=== PATIENT | female | born 1965 | race American Indian/Alaskan Native ===

== ENCOUNTER 2017-02-27 06:28 | Emergency (ER) | payer OTHER ==
[2017-02-27] MEDS ORDERED: BENADRYL PO ONE (08:20)
[2017-02-27] MEDS ORDERED: VALIUM PO ONE (08:20)
[2017-02-27] MEDS ORDERED: MOTRIN PO ONE (08:20)
[2017-02-27] MEDS ORDERED: TYLENOL PO ONE (08:23)
--- NOTE | 2017-02-27 08:49 | Cat Scan Report ---
CT HEAD WITHOUT CONTRAST INDICATION: Headache. COMPARISON: None similar. FINDINGS: Noncontrast head CT demonstrates normal ventricles and sulci without acute or recent infarct, hemorrhage, mass effect or midline shift. Approximately 1.7 cm high left frontal old infarct, axial image 34, series 2. No abnormal extra-axial fluid collections. Posterior fossa structures and basilar cisterns appear within normal limits. Symmetric eye globes. Imaged left maxillary sinus near completely filled by a 3.5 x 2.4 cm mucous retention cyst. Clear remainder imaged paranasal sinuses and mastoid air cells. Slight leftward nasal septal bowing. Intact calvarium. Normal overlying scalp soft tissues. Few radiopaque dental material incidentally noted. CONCLUSION: No acute intracranial CT abnormality with extensive left maxillary sinus disease and few other incidental findings, as described. Please correlate. Thank you for the opportunity to participate in this patient's care.
--- NOTE | 2017-02-27 11:08 | Emergency Department Report ---
ED Headache HPI - General Chief Complaint: Headache Stated Complaint: RT FACIAL PAIN Time Seen by Provider: 02/27/17 08:13 - History of Present Illness Initial Comments: 52-year-old -[place] female with a past medical history of diabetes comes in today for complaint of headache on the right side since Thursday. Patient denies any blurred vision no change of vision no dizziness no nausea no vomiting no trauma. She does report she has a history of allergies. She is currently taking metformin for diabetes twice a day. She does report she took ibuprofen 800 mg which had some relief but did not take the headache away totally. Patient does report that the headache radiates down to under her tongue. She denies his being her worst headache. She denies any chest pain she denies any shortness of breath she denies any jaw pain. Quality: moderate Head Injury Location: parietal Recent Head Trauma: no recent headache/trauma Allergies/Adverse Reactions: Allergies No Known Allergies Allergy (Verified 12/28/15 09:30) Home Medications: Ambulatory Orders Tamsulosin [Flomax] 0.4 mg PO QDAY #15 cap 12/28/15 Fluticasone [Flonase] 1 spray NS BID #1 bottle 02/27/17 Ibuprofen [Motrin 800 MG tab] 800 mg PO Q8HR PRN #30 tablet 02/27/17 ED Review of Systems ROS: Stated complaint: RT FACIAL PAIN Other details as noted in HPI ED Past Medical Hx - Past Medical History Previous Medical History?: Yes Hx Diabetes: Yes (borderline) - Surgical History Past Surgical History?: Yes Additional Surgical History: partial hysterectomy - Social History Smoking Status: Never Smoker Substance Use Type: None - Medications Home Medications: Home Medications Medication Instructions Recorded Confirmed Last Taken Type Tamsulosin [Flomax] 0.4 mg PO QDAY #15 cap 12/28/15 Unknown Rx Fluticasone [Flonase] 1 spray NS BID #1 bottle 02/27/17 Unknown Rx Ibuprofen [Motrin 800 MG tab] 800 mg PO Q8HR PRN #30 tablet 02/27/17 Unknown Rx ED Physical Exam - General Limitations: No Limitations General appearance: alert - Head Head exam: Present: atraumatic - Eye Eye exam: Present: normal appearance, EOMI Pupils: Present: normal accommodation - ENT ENT exam: Present: normal exam, mucous membranes moist - Neck Neck exam: Present: normal inspection - Respiratory Respiratory exam: Present: normal lung sounds bilaterally. Absent: respiratory distress - Cardiovascular Cardiovascular Exam: Present: regular rate, normal rhythm, normal heart sounds - Neurological Exam Neurological exam: Present: alert, oriented X3 - Psychiatric Psychiatric exam: Present: normal affect - Skin Skin exam: Present: warm, dry, intact ED Course Vital Signs 02/27/17 07:20 Temperature 98.2 F Pulse Rate 72 Respiratory 18 Rate Blood Pressure 153/96 O2 Sat by Pulse 99 Oximetry ED Medical Decision Making - Radiology Data Radiology results: report reviewed, image reviewed CT results conclusion no acute intracranial CT abnormalities with extensive left maxillary sinus disease and a few other incidental findings as described above. Consist of noncontrast CT demonstrates normal ventricular and socks is without acute or recent infarct, hemorrhagic mass effect on midline shift approximately 1.7 cm high left frontal O infarct, axial image 34 series today. No abnormal extra-axial axillary fluid collections. Posterior fossa structure and basilar cistern. Within normal limits. Symmetric I globes image left maxillary sinus nearly completely fill bite at 3.5 x 2.4 cm mucus retention cyst. Clear remainder images parasite all sinuses and mastoid air cells. Slightly leftward nasal septal bowing. Intact cavernoma normal overlying scalp soft tissue few radiopaque dental material is initially noted - Medical Decision Making Evaluated by this provider Nura. Discussed patient that we would discharge her on Flonase I's a day and ibuprofen. Recommend for her to follow up with ear nose and throat provider. This case was discussed with Dr. Bennett. Critical care attestation.: If time is entered above; I have spent that time in minutes in the direct care of this critically ill patient, excluding procedure time. ED Disposition Clinical Impression: Mucous retention cyst of maxillary sinus Headache Qualifiers: Headache type: unspecified Headache chronicity pattern: acute headache Intractability: not intractable Qualified Code(s): R51 - Headache Disposition: DISCHARGED TO HOME OR SELFCARE Is pt being admited?: No Does the pt Need Aspirin: No Condition: Stable Instructions: Analgesic/Decongestant (By mouth) Additional Instructions: Pleas take ibuprofen every 8 hours for headache as well as please use the Flonase nasal spray every 12 hours. I will likely to follow up with Dr. Kirsty Biggs ceramic research engineer. Prescriptions: Fluticasone [Flonase] 1 spray NS BID #1 bottle Ibuprofen [Motrin 800 MG tab] 800 mg PO Q8HR PRN #30 tablet PRN Reason: Pain Referrals: PRIMARY CARE, [Primary Care Provider] - 3-5 Days BASHIR REDDY MD [Staff Physician] - 3-5 Days Forms: Work/School Release Form(ED)
[2017-02-27 11:43] VITALS: BP 148/90
== END 2017-02-27 11:42 | disposition home or self-care (01) ==
LOC: ED 06:28
DX: M27.40 Unspecified cyst of jaw (principal); R51 Headache; Z90.711 Acquired absence of uterus with remaining cervical stump
CPT/HCPCS: 70450

== ENCOUNTER 2017-06-23 15:29 | Emergency (ER) | payer OTHER ==
[2017-06-23 16:12] VITALS: BP 162/93
--- NOTE | 2017-06-23 22:35 | XRay Report ---
FINAL REPORT PROCEDURE: XR SHOULDER 2+V RT TECHNIQUE: Right shoulder radiographs including AP views in internal and external rotation and abduction. CPT 36508 HISTORY: shoulder pain/RT COMPARISON: No prior studies are available for comparison. FINDINGS: Fracture (s) and/or Dislocation(s): None . Joint space(s): Normal . Soft tissues: Normal . Bone mineralization: Normal . Foreign bodies: None . IMPRESSION: Normal Examination
[2017-06-23] MEDS ORDERED: ZOFRAN IM ONE (23:50)
[2017-06-23] MEDS ORDERED: MORPHINE IM ONE (23:50)
[2017-06-23] MEDS ORDERED: TORADOL IM ONE (23:50)
--- NOTE | 2017-06-23 23:55 | Emergency Department Report ---
HPI - General Chief Complaint: Shoulder Injury Time Seen by Provider: 06/23/17 23:38 - HPI HPI: Room 29 The patient is a 52-year-old female presenting with a chief complaint of right shoulder pain. The patient states she awakened this morning with pain in the right shoulder. The patient states she took a muscle relaxer (name unknown) but it has not helped. Patient denies any preceding trauma. The patient states for the past 2 years she has had intermittent episodes of muscle spasms in the neck and shoulder but has never been this severe. Patient states she has never seen an orthopedic surgeon. The patient currently gives her pain a score of 10/10 Location: Right trapezius Duration: Constant since this morning Quality: Spasm Severity: 10/10 Modifying factors: [see above] Context: [see above] Mode of transportation: [not driving] ED Past Medical Hx - Past Medical History Previous Medical History?: Yes Hx Hypertension: Yes Hx Diabetes: Yes Additional medical history: headaches - Surgical History Past Surgical History?: Yes Additional Surgical History: partial hysterectomy - Family History Family history: no significant - Social History Smoking Status: Never Smoker Substance Use Type: None - Medications Home Medications: Home Medications Medication Instructions Recorded Confirmed Last Taken Type Tamsulosin [Flomax] 0.4 mg PO QDAY #15 cap 12/28/15 02/27/17 02/26/17 Rx 1 tab Fluticasone [Flonase] 1 spray NS BID #1 bottle 02/27/17 Unknown Rx Ibuprofen [Motrin 800 MG tab] 800 mg PO Q8HR PRN #30 tablet 02/27/17 Unknown Rx Cyclobenzaprine [Flexeril] 10 mg PO TID PRN #10 tablet 06/23/17 Unknown Rx HYDROcodone/APAP 5-325 [[place] 1 - 2 each PO Q6HR PRN #10 tablet 06/23/17 Unknown Rx 5/325] Ibuprofen [Motrin 800 MG tab] 800 mg PO Q8HR PRN #20 tablet 06/23/17 Unknown Rx ED Review of Systems ROS: Stated complaint: SHOULDER PAIN Other details as noted in HPI Comment: All other systems reviewed and negative Constitutional: denies: chills, fever Eyes: denies: eye pain, eye discharge, vision change ENT: denies: ear pain, throat pain Respiratory: denies: cough, shortness of breath, wheezing Cardiovascular: denies: chest pain, palpitations Endocrine: no symptoms reported Gastrointestinal: denies: abdominal pain, nausea, diarrhea Genitourinary: denies: urgency, dysuria, discharge Musculoskeletal: myalgia Skin: denies: rash, lesions Neurological: denies: headache, weakness, paresthesias Psychiatric: denies: anxiety, depression Hematological/Lymphatic: denies: easy bleeding, easy bruising Physical Exam - Physical Exam Vital Signs: Vital Signs 06/23/17 16:07 Temperature 98.6 F Pulse Rate 78 Respiratory 20 Rate Blood Pressure 162/93 O2 Sat by Pulse 100 Oximetry Physical Exam: GENERAL: The patient is well-developed well-nourished female lying on stretcher not appearing to be in acute distress. [] HEENT: Normocephalic. Atraumatic. Extraocular motions are intact. Patient has moist mucous membranes. NECK: Supple. Trachea midline. CHEST/LUNGS:There is no respiratory distress noted. HEART/CARDIOVASCULAR: Regular. There is no tachycardia. 2+ right radial pulse ABDOMEN: There is no abdominal distention. SKIN: There is no rash. There is no edema. There is no diaphoresis. NEURO: The patient is awake, alert, and oriented. The patient is cooperative. The patient has normal speech. Normal front end engineer right hand. MUSCULOSKELETAL: There is tenderness to palpation of the right side of the trapezius muscle. There is no limitation range of motion of the right shoulder. There is no evidence of acute injury. ED Course Vital Signs 06/23/17 16:07 Temperature 98.6 F Pulse Rate 78 Respiratory 20 Rate Blood Pressure 162/93 O2 Sat by Pulse 100 Oximetry ED Medical Decision Making - Radiology Data Radiology results: image reviewed (right shoulder x-ray) interpreted by me: Right shoulder x-ray-no acute fracture, no dislocation - Differential Diagnosis rotator cuff injury, trapezius spasm, cervical radiculopathy Critical care attestation.: If time is entered above; I have spent that time in minutes in the direct care of this critically ill patient, excluding procedure time. ED Disposition Clinical Impression: Right shoulder pain Disposition: DC-01 TO HOME OR SELFCARE Is pt being admited?: No Does the pt Need Aspirin: No Condition: Stable Instructions: Shoulder Sprain (ED) Additional Instructions: Return to the emergency department immediately should you develop worsening symptoms, fever, inability to tolerate food or liquid or any other concerns. Prescriptions: Cyclobenzaprine [Flexeril] 10 mg PO TID PRN #10 tablet PRN Reason: Muscle Spasm HYDROcodone/APAP 5-325 [[place] 5/325] 1 - 2 each PO Q6HR PRN #10 tablet PRN Reason: Pain Ibuprofen [Motrin 800 MG tab] 800 mg PO Q8HR PRN #20 tablet PRN Reason: Pain Referrals: PRIMARY CAREMD [Primary Care Provider] - 3-5 Days SHAHAB REY MD [Staff Physician] - 3-5 Days (Dr. Rey is an orthopedic surgeon. Please follow up with him for further evaluation) Time of Disposition: 23:57
== END 2017-06-24 00:24 | disposition home or self-care (01) ==
LOC: ED 15:29
DX: M25.511 Pain in right shoulder (principal); I10 Essential (primary) hypertension; E11.9 Type 2 diabetes mellitus without complications; X58.XXXA Exposure to other specified factors, initial encounter; Y93.89 Activity, other specified; Y92.89 Other specified places as the place of occurrence of the external cause; Y99.8 Other external cause status
CPT/HCPCS: 73030; 96372; 99283; J1885; J2270; J2405

== ENCOUNTER 2018-03-02 07:13 | Emergency (ER) | payer OTHER ==
[2018-03-02 07:37] VITALS: BP 161/78
--- NOTE | 2018-03-02 10:04 | Emergency Department Report ---
ED Neck Pain [facility] Chief Complaint: Neck Pain/Injury Stated Complaint: NECK PAIN Time Seen by Provider: 03/02/18 10:01 ED Review of Systems ROS: Stated complaint: NECK PAIN Other details as noted in HPI ED Past Medical Hx - Past Medical History Previous Medical History?: Yes Hx Hypertension: Yes Hx Diabetes: Yes Additional medical history: headaches - Surgical History Past Surgical History?: Yes Additional Surgical History: partial hysterectomy, CYST REMOVED FROM NOSE - Social History Smoking Status: Never Smoker Substance Use Type: Alcohol, Prescribed - Medications Home Medications: Home Medications Medication Instructions Recorded Confirmed Last Taken Type Tamsulosin [Flomax] 0.4 mg PO QDAY #15 cap 12/28/15 02/27/17 02/26/17 Rx 1 tab Fluticasone [Flonase] 1 spray NS BID #1 bottle 02/27/17 Unknown Rx Ibuprofen [Motrin 800 MG tab] 800 mg PO Q8HR PRN #30 tablet 02/27/17 Unknown Rx Cyclobenzaprine [Flexeril] 10 mg PO TID PRN #10 tablet 06/23/17 Unknown Rx HYDROcodone/APAP 5-325 [[place] 1 - 2 each PO Q6HR PRN #10 tablet 06/23/17 Unknown Rx 5/325] Ibuprofen [Motrin 800 MG tab] 800 mg PO Q8HR PRN #20 tablet 06/23/17 Unknown Rx Neck Pain Exam - Exam General: Vital signs noted. No distress. Alert and acting appropriately. ED Course Vital Signs 03/02/18 07:34 Temperature 98.9 F Pulse Rate 80 Respiratory 20 Rate Blood Pressure 161/78 O2 Sat by Pulse 100 Oximetry Critical care attestation.: If time is entered above; I have spent that time in minutes in the direct care of this critically ill patient, excluding procedure time. ED Disposition Condition: Stable Referrals: PRIMARY CARE, [Primary Care Provider] - 3-5 Days
--- NOTE | 2018-03-02 10:19 | Emergency Department Report ---
HPI - General Chief Complaint: Neck Pain/Injury Time Seen by Provider: 03/02/18 10:01 - HPI HPI: Patient complain and neck pain for 4 days. She is pointing to the left side of her head and also left side of neck. She said pain is 8 out of 10 and he feels tight. Denies any injury. Patient has a history of headache diabetes and hypertension. She has a history of partial hysterectomy. She says she took [id number] pain medication but it didn't work. Patient is also lasted for work through ports. Denies any chest pain or shortness of breath. Denies any cough or reports some nasal congestion and drainage. Denies any fever or chills. Denies any nausea vomiting or diarrhea. Denies any abdominal or back pain. Nothing makes pain better and nothing makes it worse. Denies sensitivity to light. Denies any visual problems and denies dizziness. ED Past Medical Hx - Past Medical History Previous Medical History?: Yes Hx Hypertension: Yes Hx Diabetes: Yes Additional medical history: headaches - Surgical History Past Surgical History?: Yes Additional Surgical History: partial hysterectomy, CYST REMOVED FROM NOSE - Family History Family history: hypertension - Social History Smoking Status: Never Smoker Substance Use Type: Alcohol, Prescribed - Medications Home Medications: Home Medications Medication Instructions Recorded Confirmed Last Taken Type Tamsulosin [Flomax] 0.4 mg PO QDAY #15 cap 12/28/15 02/27/17 02/26/17 Rx 1 tab Ibuprofen [Motrin 800 MG tab] 800 mg PO Q8HR PRN #30 tablet 02/27/17 Unknown Rx Cyclobenzaprine [Flexeril] 10 mg PO TID PRN #10 tablet 06/23/17 Unknown Rx HYDROcodone/APAP 5-325 [[place] 1 - 2 each PO Q6HR PRN #10 tablet 06/23/17 Unknown Rx 5/325] Ibuprofen [Motrin 800 MG tab] 800 mg PO Q8HR PRN #20 tablet 06/23/17 Unknown Rx Amoxicillin/K Clav Tab [Augmentin 1 tab PO Q12HR 10 Days #20 tab 03/02/18 Unknown Rx 875 mg] Cetirizine HCl [ZyrTEC] 10 mg PO QAM 14 Days #14 capsule 03/02/18 Unknown Rx Fluticasone [Flonase] 1 spray NS BID 14 Days #1 bottle 03/02/18 Unknown Rx traMADol [Ultram] 50 mg PO Q6HR PRN 5 Days #5 tablet 03/02/18 Unknown Rx ED Review of Systems ROS: Stated complaint: NECK PAIN Other details as noted in HPI Comment: All other systems reviewed and negative Constitutional: no symptoms reported Eyes: denies: eye pain, vision change ENT: congestion. denies: ear pain, throat pain Respiratory: no symptoms reported Cardiovascular: denies: chest pain, palpitations, dyspnea on exertion, orthopnea , edema, syncope, paroxysmal nocturnal dyspnea Gastrointestinal: denies: abdominal pain, nausea, vomiting, diarrhea, constipation, hematemesis, melena, hematochezia Genitourinary: denies: urgency, dysuria, frequency, hematuria, discharge Musculoskeletal: arthralgia, myalgia. denies: back pain, joint swelling Skin: denies: rash Neurological: headache. denies: weakness, numbness, paresthesias, confusion, abnormal gait, vertigo Physical Exam - Physical Exam Vital Signs: Vital Signs 03/02/18 07:34 Temperature 98.9 F Pulse Rate 80 Respiratory 20 Rate Blood Pressure 161/78 O2 Sat by Pulse 100 Oximetry General: This is a 53-year-old female well-nourished well-developed in no acute distress. She is nontoxic in appearance Physical Exam: Head: Normocephalic, atraumatic, no abrasion, no bruising and no contusion. Eyes: Biateral pupils equal and reactive to light, bilateral EOM intact.. Bilateral conjunctival and sclera without injection, normal accommodation. No nystagmus Mouth: Mucosa dry, no pharyngeal exudate or erythema. No peritonsillar abscesses. Uvula is midline and oral airways patent. Ears: Bilateral TMs congested without erythema. Bilateral EAC without any redness swelling or drainage. No mastoid bone tenderness Nose: Bilateral nasal mucosa congested with erythema and clear drainage , Maxillary and frontal sinuses non-tender to palpate. Neck: Supple, No Cervical adenopathy, full range of motion and no C-spine tenderness. No swelling or tracheal deviation normal reflexes Cardiovascular: S1, S2. Regular rate and rhythm. No murmur. Capillary refill is less then 3 seconds. Lungs: Clear to auscultate bilaterally. No rhonchi, wheezes or rales. No chest wall tenderness. No chest contusion. No bruising to chest. MSK: Strength 5/5 in all extremities. No joint deformity or crepitus. Normal inspection. Full range of motion to all extremities. No laceration, abrasion or ecchymotic area noted. Abdomen: Non-tender to palpate in all quadrants, no guarding or rebound tenderness, positive bowel sounds in all quadrants. No CVA tenderness. No hernia, bruit or mass. No rigidity or distention. Extremities: No clubbing, cyanosis or edema. +2 pulses. No neurovascular compromise Skin: Clean, dry and intact. No rash or lesions. Neurological: GCS at 15, Pt is alert and oriented 3 speech is clear . Bilateral [place] ordinary strong and equal. Normal gait. Negative Romberg and no pronator drift. Normal Reflexes. No motor or sensory deficit Back: No vertebral tenderness, no paraspinal tenderness. Ambulates without any difficulties. Psych: Normal mood and behavior ED Course Vital Signs 03/02/18 07:34 Temperature 98.9 F Pulse Rate 80 Respiratory 20 Rate Blood Pressure 161/78 O2 Sat by Pulse 100 Oximetry - Reevaluation(s) Reevaluation #1: 03/02/18 13:03 Patient given Tylenol 975 mg by mouth and emergency room which she also pain the lobe. CT scan of the head without any acute findings except for extracranial sinusitis which is chronic and CT scan of the neck was normal. Patient was given then Toradol 60 mg IM and Decadron 10 mg IM. ED Medical Decision Making - Radiology Data Radiology results: report reviewed CT scan of the brain and head with contrast shows patient with chronic focal infarct in the left frontal lobe measures approximately 2.5 cm. The remaining brain parents Amanda demonstrate normal attenuation. Normal hernandez and white matter. Severe left maxillary sinusitis which is chronic. CT scan of the neck reveal patient without any acute abnormalities. - Medical Decision Making ED course: She reports that she has neck pain on the left side of her neck but upon questioning patient says it's her head this radiated down to the left neck. Pain is located to the left side of head this radiated onto left neck. Patient found to have congested and erythema nasal mucosa with clear drainage. She was given Decadron 10 mg IM and Toradol 60 mg IM which relieved her pain. Her neurological exam is normal and she is able to ambulate without any difficulties. Patient is better after Toradol and Decadron. I discussed with her her CT scan of her head and neck which were both negative for any acute findings but CT scan of the head with chronic focal infarct in the left frontal lobe which patient said that she had a stroke in the past. Extracranial chronic sinusitis. Patient and was undescended discharge instruction sugar and plan and discharged home in stable condition with prescription for ultram, Augmentin, Flonase and Zyrtec. Critical care attestation.: If time is entered above; I have spent that time in minutes in the direct care of this critically ill patient, excluding procedure time. ED Disposition Clinical Impression: History of cerebral infarction, Neck pain on left side Acute sinusitis Qualifiers: Sinusitis location: maxillary Recurrence: recurrent Qualified Code(s): J01.01 - Acute recurrent maxillary sinusitis Headache Qualifiers: Headache type: unspecified Headache chronicity pattern: acute headache Intractability: not intractable Qualified Code(s): R51 - Headache Disposition: DC- TO HOME OR SELFCARE Is pt being admited?: No Does the pt Need Aspirin: No Condition: Stable Instructions: Musculoskeletal Pain (ED), Sinusitis (ED), Acute Headache (ED) Additional Instructions: Please increase her fluid intake Flush nostrils with saline nasal spray take antibiotic as prescribed F/U with primary care physician as instructed in 2 days Prescriptions: Amoxicillin/K Clav Tab [Augmentin 875 mg] 1 tab PO Q12HR 10 Days #20 tab Cetirizine HCl [ZyrTEC] 10 mg PO QAM 14 Days #14 capsule Fluticasone [Flonase] 1 spray NS BID 14 Days #1 bottle traMADol [Ultram] 50 mg PO Q6HR PRN 5 Days #5 tablet PRN Reason: Pain Referrals: PRIMARY CARE, [Primary Care Provider] - 03/03/18 follow-up, neurologist in 2 days [Other] - 03/04/18 Forms: Work/School Release Form(ED)
[2018-03-02] MEDS ORDERED: TYLENOL PO ONE (10:23)
--- NOTE | 2018-03-02 11:32 | Cat Scan Report ---
CT HEAD WITHOUT CONTRAST: HISTORY: Headache. TECHNIQUE: Sequential 2.5mm CT images. COMPARISON: 02/27/17. FINDINGS: Cerebral Parenchyma: Chronic focal infarct in the left frontal lobe measures approximately 2.5 cm. The remaining brain parenchyma demonstrates normal attenuation. Normal hernandez-white interface. Cerebellum: Within normal limits. Brainstem: Within normal limits. Ventricles: Normal. Sella: Normal. Extra-axial spaces: Normal. Basal Cisterns: Normal. Intracranial Hemorrhage: None. Midline Shift: None. Calvarium: Normal. Sinuses: The visualized superior left maxillary sinus is opacified. The remaining sinuses are adequately aerated. Mastoid Air Cells: Normal. Visualized Orbits: Normal. IMPRESSION: No acute intracranial process. Chronic left frontal infarct. Chronic left maxillary sinus disease. No significant change since 02/27/17.
--- NOTE | 2018-03-02 11:50 | Cat Scan Report ---
CT SCAN OF THE CERVICAL SPINE: HISTORY: Neck pain. TECHNIQUE: Contiguous 1.25 mm axial images of the cervical spine were obtained. Sagittal and coronal reformatted images. FINDINGS: There is normal alignment of the cervical spine. The body, pedicles and posterior ligaments appear normal. No evidence of fracture or subluxation is seen. The spinal canal appears normal. The prevertebral soft tissues appear normal. IMPRESSION: Unremarkable CT of the cervical spine. No acute process is noted.
[2018-03-02] MEDS ORDERED: NACL 0.9% 500 ML 500 ML ONE (12:53)
[2018-03-02] MEDS ORDERED: DECADRON IM ONE (13:04)
[2018-03-02] MEDS ORDERED: TORADOL IM ONE (13:04)
== END 2018-03-02 13:29 | disposition home or self-care (01) ==
LOC: ED 07:13
DX: M54.2 Cervicalgia (principal); R51 Headache; J01.00 Acute maxillary sinusitis, unspecified; I10 Essential (primary) hypertension; E11.9 Type 2 diabetes mellitus without complications; Z86.73 Personal history of transient ischemic attack (TIA), and cerebral infarction without residual deficits
CPT/HCPCS: 70450; 72125; 96372; 99283; J1100; J1885; J7040